=== PATIENT | female | born 1970 | race Caucasian/White ===

== ENCOUNTER 2018-08-20 10:44 | Outpatient (REF) | payer OTHER, SELFPAY ==
--- NOTE | 2018-08-20 09:00 | PAPFT_PTH ---
PATIENT: Lis Arguelles LOC: [facility] U#:[id number] AGE/SX: 48/F ROOM: RE08/20/[address]: FLORINA Call : 1970 BED: DIS: 08/20/2018 SPEC #: [id number] RECD: 08/20/18 12:55 STATUS: CLARK REQ #: [id number] KARYNA: 08/20/18 09:[address]: Devi Foley DEPT: [facility] Cytology RECD BY: Mariana Johnston ENTERED: 08/20/18 12:55 SP TYPE: PAPFT OTHR DR: Jimmy Guardado Tissues: 1 - CX/ENDOCX FOR PAP SMEARS Procedures: PAP THIN PREP/UVM Screening HPV DNA PROBE Comments: [id number]
[2018-08-21 14:45] LABS: Chlamydia Result Negative; GC Result Negative; Specimen Description CERVIX
== END 2018-08-20 11:04 ==
LOC: LBN 10:44
PROVIDERS: PCP Family Medicine; Visit Provider Nurse Practitioner Family
DX: Z11.3 Encounter for screening for infections with a predominantly sexual mode of transmission (principal); Z12.4 Encounter for screening for malignant neoplasm of cervix; Z11.51 Encounter for screening for human papillomavirus (HPV)
CPT/HCPCS: 87491; 87591; 88142; 87624

== ENCOUNTER 2018-09-06 00:29 | Outpatient (CLI) | payer OTHER, SELFPAY ==
--- NOTE | 2018-09-06 08:30 | DI.MAMMO_ITS ---
SYMPTOM/DIAGNOSIS: SCREENING, Z12.31 MAMMOGRAMS: Mammograms were interpreted according to the usual protocol including computer analysis with CAD system, tomosynthesis and C view imaging. Comparison is with the prior examinations. No suspicious masses or microcalcifications are seen. There is no definite evidence of malignancy. IMPRESSION: Negative mammogram. Routine screening is recommended. Category 1. Breast density C. MQSA ASSESSMENT OF FINDINGS: Negative. Category 1. Patient will receive a letter notifying them of these results. Bi-RADS category C. The breasts are heterogeneously dense, which may obscure small masses.
== END 2018-09-06 00:49 ==
PROVIDERS: PCP Family Medicine; Visit Provider Nurse Practitioner Family
DX: Z12.31 Encounter for screening mammogram for malignant neoplasm of breast (principal)
CPT/HCPCS: 77063; 77067

== ENCOUNTER 2018-11-19 06:39 | Day surgery (SDC) | payer OTHER, SELFPAY ==
[2018-11-19 06:45] VITALS: BP 99/64; PULSE 64; RESP 14; TEMP 37.1; O2SAT 100
[2018-11-19] MEDS: Lidocaine 2% Multi-Dose 50 ML VIAL (07:32)
--- NOTE | 2018-11-19 07:49 | W.PM.DSUDISC ---
Discharge Plan Disposition Patient Disposition: HOME Condition: Good Discharge Details Reason For Visit: TRIGGER LMF Attending Provider: Elroy Robledo Primary Care Provider: Jimmy Guardado Home Meds and New Rx's Prescriptions: Continued multivitamin [Daily Multi-Vitamin] tablet 1 tab PO DAILY RF: 0 Adult 50+ Probiotic 4 billion cell capsule PO RF: 0 Mirena 20 mcg/24 hours (5 yrs) 52 mg intrauterine device 1 device Intrauterine RF: 0 Thrive Supplement RF: 0 ibuprofen 200 MG capsule 200 mg PO PRN PRNRF: 0 naproxen sodium [Aleve] 220 MG capsule 220 mg PO PRN PRNRF: 0 Discharge Instructions Additional Instructions: Keep dressings dry and clean for 48 hours. After 48 hours, remove dressings. May then shower or bathe and brenda incision wet. Leave incision uncovered when it is dry and sealed. Bend and straighten L middle finger 10 times/hour when awake, to prevent swelling and stiffness. Use L hand as much as your discomfort allows. Take ibuprofen or tylenol for pain as needed. Follow up with in 10-14 days. Referrals: Elroy Robledo MD [ [facility] STAFF PHYSICIAN] - (f/u in 10-14 days.) Activity:: Activity as Tolerated Remove Dressings/Wound Care:: 48 hours Shower/Bathe:: 48 hours Diet:: As Tolerated Discharge Orders Discharge Orders: Discharge Order (Routine); Ordered 11/19/18 Ordered By: Elroy Robledo DS: Diagnosis Discharge Diagnosis (1) Trigger finger, left middle finger: Status: Acute
--- NOTE | 2018-11-19 13:16 | ROE_ITS ---
DATE OF PROCEDURE: November 19, 2018 PREOPERATIVE DIAGNOSIS: Trigger left middle finger. POSTOPERATIVE DIAGNOSIS: Same. PROCEDURE: Tendon sheath incision for trigger finger release left middle finger. SURGEON: Elroy Robledo M.D. ANESTHESIA: Local infiltration with 1% Xylocaine solution and 0.5% Marcaine with an epinephrine solu tion. INDICATIONS: This is a 48-year-old white female with painful locking of her left middle finger. She 's had this triggering of her left middle finger for a couple of years, but it's only within the last four months that she started having pain with it. Tendon sheath incision was recommended to allevia te her symptoms and alleviate her pain. The risks and complications of the procedure were explained to the patient in detail preoperatively. PROCEDURE: The patient was taken to the Operating Room on 11/19/18. She was placed supine on the ope rating table. The left hand, wrist and forearm were prepped and draped free in the usual sterile fas hion. I infiltrated over the proximal bari of the flexor sheath of the left middle finger with 1% Xylocaine solution. I made a transverse incision centered over the proximal bari of the flexor she ath measuring about 2.5 cm in length. The incision was carried down through the subcu. Blunt-tipped Littler scissors were then used to mobilize the soft tissue away from the flexor sheath. Under dire ct vision, the flexor sheath was incised in the midline. When the proximal bari was fully incised, the patient was asked to actively flex and extend her middle finger. She was now able to flex and e xtend her middle finger fully without locking or catching. The wound was irrigated with saline solut ion. The wound margins were infiltrated with 0.5% Marcaine with an epinephrine solution and the skin edges were approximated with two interrupted #4-0 Nylon sutures. The wound was dressed with Xerofor m gauze, sterile gauze 4x4's, and wrapped with a 2-inch Cling bandage. The patient tolerated the pro cedure well and was discharged to the Day Surgery Unit in good condition. The patient was discharged home from the Day Surgery Unit with instructions to keep her dressings adrian an and dry for 48 hours. She is encouraged to flex and extend her middle finger ten times an hour wh ile awake to prevent swelling and decrease pain. She will take ibuprofen or Tylenol for pain, if nee ded. After 48 hours she can remove her dressings, shower and get her incision wet. She can leave th e incision uncovered when it is dry and sealed. She should follow-up with me in 10 to 14 days.
== END 2018-11-19 08:05 | disposition home or self-care (01) ==
PROVIDERS: PCP Family Medicine; Visit Provider Orthopaedic Surgery
PROC: (CPT 26055; principal; 2018-11-19 07:30)
DX: M65.332 Trigger finger, left middle finger (principal)
CPT/HCPCS: 26055

== ENCOUNTER 2020-10-21 02:10 | Outpatient (CLI) | payer OTHER, SELFPAY ==
--- NOTE | 2020-10-21 15:53 | DI.MAMMO_ITS ---
EXAM: MAMMO SCREENING CLINICAL HISTORY: screening,Z12.39. TECHNIQUE: Bilateral full field digital CC and MLO mammographic images were obtained with 3D tomosyn thesis and utilizing computer aided detection (CAD). COMPARISON: Prior mammograms dating back to 2011, the most recent being August 2018. FINDINGS: Fibroglandular tissue is again noted be moderately dense, this decreasing the sensitivity of the mamm ogram for finding hidden underlying lesions. No new significant radiograph findings in the right breast. In the left breast there are 2 findings. For sleep, there is a suggestion of a 5 millimeter x 5 mill imeter asymmetric density seen on the MLO view located approximately 5 cm in from the nipple. Secondly, on the left MLO view there is a group of microcalcifications located approximately 5 cm in from the nipple. 2D spot Mag view recommended. No new architectural distortion or skin thickening-traction IMPRESSION: Dense bilateral fibroglandular tissue. No obvious radiographic evidence of malignancy in the right b reast. Two separate findings in the left breast including a small group of microcalcifications which require spot CC 2D view and there is also an asymmetric density-possible nodule requiring 3D spot compressio n MLO view. Also require left breast ultrasound. BI-RADS Category 0 - Assessment Incomplete: Need additional imaging evaluation Breast Density - Category C - Heterogeneously dense Breast density Category C or D implies that the patient has dense breast tissue. Dense breast tissue can make it harder to find cancer on a mammogram. Dense breast tissue is also associated with an incr eased risk of breast cancer. This information about the result of the mammogram report was provided to the patient to raise their awareness. Use this report when you speak with the patient about their risks for breast cancer, which includes their family history. At that time, you may recommend additional screening tests (Ultrasoun d or MRI) as these tests may add significant information. A negative radiographic report should not delay biopsy if a dominant or clinically suspicious mass is present. Up to ten percent of cancers are not identified on mammography. A negative report may reinforce clinical impression. Adenosis and dense breasts may obscure an underlying neoplasm. False positive reports average 6 to 10%. Patient will receive a letter notifying them of these results.
== END 2020-10-21 02:30 ==
PROVIDERS: PCP Family Medicine; Visit Provider Nurse Practitioner Family
DX: Z12.31 Encounter for screening mammogram for malignant neoplasm of breast (principal); R92.8 Other abnormal and inconclusive findings on diagnostic imaging of breast
CPT/HCPCS: 77063; 77067

== ENCOUNTER 2020-11-02 01:27 | Outpatient (CLI) | payer OTHER, SELFPAY ==
--- NOTE | 2020-11-02 | DI.US_ITS ---
Exam(s) MG MAMMO SCREEN CALL BACK UNI US BREAST LT LIMITED EXAM: MG MAMMO SCREEN CALL BACK UNI and U/S breast LT limited CLINICAL HISTORY: F/U MAMMO,ASYMMETRIC DENSITY, ? NODULE, MICROCALCIFICATIONS LT BREAST. TECHNIQUE: Craniocaudal and mediolateral oblique Full Field Digital Mammography views of the left br east with Computer Aided Diagnosis followed by Tomosynthesis and left breast ultrasound. COMPARISON: Comparison with prior examinations. FINDINGS: Mammography/Tomosynthesis: Masses/Architectural Distortion: None seen. Microcalcifictions: No suspicious pleomorphic-type are seen. There are 3 punctate nonspecific calcifi cations seen in the medial left breast. No associated architectural distortion or mass is seen. Skin Thickening/Nipple Retraction: None. Left breast US: Echotexture: Normal appearance of the glandular tissue. Shadowing: No suspicious foci. Cyst: None. Solid lesions: None seen. Ductal dilation: None. IMPRESSION: 1. No evidence of malignancy is noted. 2. A six-month follow-up left mammogram is requested for re-evaluation. 3. The findings were discussed with the patient on the date of the examination. BI-RADS Category 3 - 6 month - Probably Benign Finding: Recommend follow-up imaging in 6 months Breast Density - Category C - Heterogeneously dense Breast density Category C or D implies that the patient has dense breast tissue. Dense breast tissue can make it harder to find cancer on a mammogram. Dense breast tissue is also associated with an incr eased risk of breast cancer. This information about the result of the mammogram report was provided to the patient to raise their awareness. Use this report when you speak with the patient about their risks for breast cancer, which includes their family history. At that time, you may recommend additional screening tests (Ultrasoun d or MRI) as these tests may add significant information. A negative radiographic report should not delay biopsy if a dominant or clinically suspicious mass is present. Up to ten percent of cancers are not identified on mammography. A negative report may reinforce clinical impression. Adenosis and dense breasts may obscure an underlying neoplasm. False positive reports average 6 to 10%. Patient will receive a letter notifying them of these results.
== END 2020-11-02 01:47 ==
PROVIDERS: PCP Family Medicine; Visit Provider Nurse Practitioner Family
DX: Z12.31 Encounter for screening mammogram for malignant neoplasm of breast (principal); R92.8 Other abnormal and inconclusive findings on diagnostic imaging of breast; N60.82 Other benign mammary dysplasias of left breast
CPT/HCPCS: 76642; 77063; 77067

== ENCOUNTER 2021-05-05 00:37 | Outpatient (CLI) | payer OTHER, SELFPAY ==
--- NOTE | 2021-05-05 06:30 | DI.MAMMO_ITS ---
Exam(s) MG MAMMO DIAGNOSTIC UNI EXAM: MG MAMMO DIAGNOSTIC UNI-LEFT CLINICAL HISTORY: 6 month f/u Left breast mammo,F/U ABNL MAMMO, R92.8. TECHNIQUE: Unilateral spot mammographic images were obtained with 3D tomosynthesis technique and uti lizing computer aided detection (CAD). COMPARISON: Prior mammograms dating back to 2011, the most recent being October 2020. Diagnostic stud y of October 2020 was also reviewed. Ultrasound was apparently negative time. FINDINGS: The fibroglandular tissue pattern is again noted be dense. 3D imaging today there is less evidence of a nodule. Few benign microcalcifications are noted. No new architectural distortion or skin thickening-traction IMPRESSION: No radiographic evidence of malignancy Appropriate follow-up is to keep this patient yearly mammogram schedule, this implying the next bilat eral mammogram would be in 6 months. The patient was informed of the findings and follow-up recommendations prior to leaving the [facility] today. BI-RADS Category 2 - Benign Findings Breast Density - Category C - Heterogeneously dense Breast density Category C or D implies that the patient has dense breast tissue. Dense breast tissue can make it harder to find cancer on a mammogram. Dense breast tissue is also associated with an incr eased risk of breast cancer. This information about the result of the mammogram report was provided to the patient to raise their awareness. Use this report when you speak with the patient about their risks for breast cancer, which includes their family history. At that time, you may recommend additional screening tests (Ultrasoun d or MRI) as these tests may add significant information. A negative radiographic report should not delay biopsy if a dominant or clinically suspicious mass is present. Up to ten percent of cancers are not identified on mammography. A negative report may reinforce clinical impression. Adenosis and dense breasts may obscure an underlying neoplasm. False positive reports average 6 to 10%. Patient will receive a letter notifying them of these results.
== END 2021-05-05 00:57 ==
PROVIDERS: PCP Family Medicine; Visit Provider Nurse Practitioner Family
DX: R92.8 Other abnormal and inconclusive findings on diagnostic imaging of breast (principal); R92.0 Mammographic microcalcification found on diagnostic imaging of breast
CPT/HCPCS: 77061; 77065; G0279

== ENCOUNTER 2021-09-08 01:31 | Outpatient (CLI) | payer BC, SELFPAY ==
--- NOTE | 2021-09-08 09:15 | DI.MRI_ITS ---
Exam(s) MR LUMBAR SPINE WO EXAM: MR LUMBAR SPINE WO CLINICAL HISTORY: LUMBAR RADICULOPATHY, M54.16. TECHNIQUE: Multiplanar multisequence MRI was performed. COMPARISON: MR MRI - LUMBAR SPINE WO CONTRAST from 06/24/2010 FINDINGS: MR examination lumbar spine was performed according to the usual protocol. No significant bony signa l abnormality seen. There is mild hypertrophic degenerative change of facet joints throughout the conchis mbar spine. There is loss of disc height at L3-4, L4-5, and L5-S1 with loss of signal also noted con sistent with disc degeneration. Conus medullaris appears intact. No significant findings at T11-12, T12-L1, L1-2, or L2-3. No disc herniation, central canal spinal s tenosis, or neural foraminal stenosis at these levels. At L3-4 there is a moderate disc bulge with possible small annular tear. No gross disc herniation. No central canal spinal stenosis or neural foraminal stenosis. At L4-5 there is disc bulge with a small superimposed central disc herniation. No definite neural im pingement. No central canal spinal stenosis or neural foraminal stenosis. At L5-S1, there is minimal central disc herniation. No evidence of neural impingement. No evidence of neural foraminal stenosis, central canal spinal stenosis. Comparison with prior MRI of 2009 shows little interval change in appearance comparison with the prio r study allowing for differences in technique. 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 Please see above discussion for findings at individual levels. DATA REPOSITORY:
== END 2021-09-08 01:51 ==
PROVIDERS: PCP Family Medicine; Visit Provider Nurse Practitioner
DX: M54.16 Radiculopathy, lumbar region (principal); M51.36 Other intervertebral disc degeneration, lumbar region; M51.37 Other intervertebral disc degeneration, lumbosacral region
CPT/HCPCS: 72148

== ENCOUNTER 2022-01-05 09:46 | Outpatient (REF) | payer BC, SELFPAY ==
--- NOTE | 2022-01-05 08:30 | PAPFT_PTH ---
PATIENT: Lis Arguelles LOC: [facility] U#:[id number] AGE/SX: 51/F ROOM: RE01/05/[address]: Anna Martinez NP : 1970 BED: DIS: 01/05/2022 SPEC #: [id number] RECD: 01/05/22 09:56 STATUS: CLARK MIGUEL #: [id number] KARYNA: 01/05/22 08:[address]: Anna Martinez NP DEPT: [facility] Cytology RECD BY: Shannon Duffy ENTERED: 01/05/22 09:56 SP TYPE: PAPFT OTHR DR: Jimmy Guardado Tissues: 1 - CX/ENDOCX FOR PAP SMEARS Procedures: PAP THIN PREP/UVM Screening HPV DNA PROBE Comments: [id number]
== END 2022-01-05 09:47 | disposition home or self-care (01) ==
LOC: LBN 09:46
PROVIDERS: PCP Family Medicine; Visit Provider Nurse Practitioner Women's Health
DX: Z12.4 Encounter for screening for malignant neoplasm of cervix (principal); Z11.51 Encounter for screening for human papillomavirus (HPV)
CPT/HCPCS: 88142; 87624

== ENCOUNTER → 2022-05-11 02:27 | Outpatient (CLI) | payer BC, SELFPAY ==
--- NOTE | 2022-05-11 09:15 | DI.MAMMO_ITS ---
Exam(s) MAMMO SCREENING EXAM: MAMMO SCREENING CLINICAL HISTORY: screening TECHNIQUE: Bilateral full field digital CC and MLO mammographic images were obtained with 3D tomosyn thesis and utilizing computer aided detection (CAD). COMPARISON: Available for comparison. FINDINGS: Masses/Architectural Distortion: None seen. Microcalcifications: No suspicious pleomorphic-type are seen. Skin Thickening/Nipple Retraction: None. IMPRESSION: 1. No significant interval change with no specific features of malignancy noted. 2. Unless there is more urgent need, screening mammography is recommended, as per [employer] guidelines. BI-RADS Category 1 - Negative Breast Density - Category C - Heterogeneously dense Breast density category C or D implies that the patient has dense breast tissue. Dense breast tissue is very common and is not abnormal but dense breast tissue can make it harder to find cancer on a ma mmogram. Also, dense breast tissue may increase their breast cancer risk. This information about the result of the mammogram report was provided to the patient to raise their awareness. Use this report when you speak with the patient about their risks for breast cancer, which includes their family hist ory. At that time, you may recommend for more screening tests (Ultrasound or MRI) as they might be us eful based on their risk. A negative radiographic report should not delay biopsy if a dominant or clinically suspicious mass is present. Up to ten percent of cancers are not identified on mammography. A negative report may reinforce clinical impression. Adenosis and dense breasts may obscure an underlying neoplasm. False positive reports average 6 to 10%. Patient will receive a letter notifying them of these results.
== END ==
PROVIDERS: PCP Family Medicine; Visit Provider Nurse Practitioner Women's Health
DX: Z12.31 Encounter for screening mammogram for malignant neoplasm of breast (principal); R92.2 Inconclusive mammogram
CPT/HCPCS: 77063; 77067

== ENCOUNTER 2022-06-30 07:14 | Day surgery (SDC) | payer BC, SELFPAY ==
--- NOTE | 2022-06-29 17:55 | W.ANESPRE ---
General Info Date of Service Date Performed: 06/30/22 Height: 5 ft 7 in Weight: 54 kg Body Mass Index (BMI): 18.6 Surgical Procedure: Operation Date: 06/30/22 08:50 Proposed Procedure Side Surgeon renny Ceballos MD Meds Allergies and Home Medications Allergies Allergy/AdvReac Type Severity Reaction Status Date / Time No Known Drug Allergies Allergy Verified 06/30/22 07:42 Home Medication Medication Instructions Recorded ibuprofen 200 mg capsule 200 mg PO PRN PRN 06/15/16 naproxen sodium 220 mg capsule 220 mg PO PRN PRN 06/15/16 (Aleve) Thrive Supplement 08/14/17 levonorgestrel 20 mcg/24 hours (8 1 device intrauterine 09/06/18 yrs) 52 mg intrauterine device (Mirena) Current Visit Medications: Current Medications Generic Name Dose Route Start Last Admin Trade Name Freq PRN Reason Stop Dose Admin Ringer's Solution 1,000 mls @ 80 mls/hr 06/30/22 06:00 IV 07/29/22 23:59 INFUSION DOROTHY IV Miscellaneous Supplies 1 each 06/30/22 06:00 Iv Access IV 07/29/22 23:59 DIRECTED DOROTHY Ondansetron HCl 4 mg 06/30/22 06:00 Ondansetron 4 Mg/2 Ml Vial IVP 06/30/22 16:00 PREOP DOROTHY Sodium Chloride 0 ml 06/30/22 06:00 Normal Saline Flush 10 Ml Syr IV 07/29/22 23:59 PRN PRN Sodium Chloride 0 ml 06/30/22 06:00 Normal Saline 10 Ml Vial IJ 07/29/22 23:59 DIRECTED PRN Sterile Water 0 ml 06/30/22 06:00 Water,Injection,Sterile 10 Ml Vial IJ 07/29/22 23:59 DIRECTED PRN PFSH Active Problems Active Problems: Problem Status Onset Code Trigger finger, left middle finger M65.332 IUD surveillance 05/25/15 Z30.431 Medical History Medical History Post-operative nausea and vomiting Surgical History Surgical History Ligation of fallopian tube Oophrectomy, Left (~2009) and cystectomy Tobacco Smoking/Tobacco Use Status: Never Alcohol Alcohol Intake: never Substance Use Substance use: Never Substance use type: does not use Prental History History 2 Para 2 Hx # Term Pregnancies Multiple births Hx # Pregnancies Ectopic pregnancies AB induced Hx Number of Living Children AB spontaneous Vital Signs and Lab Results Vital Signs Most Recent Vital Signs in EMR: Temp Pulse Resp BP Pulse Ox 36.2 C L 78 16 108/75 100 06/30/22 07:25 06/30/22 07:25 06/30/22 07:25 06/30/22 07:25 06/30/22 07:25 Lab Results Blood Type / Crossmatch: No Data to Display Complete Blood Count: No Data to Display Complete Metabolic Panel: No Data to Display Liver Function Panel: No Data to Display Coagulation Panel: No Data to Display Cardiac Panel: No Data to Display Arterial Blood Gas: No Data to Display Venous Blood Gas: No Data to Display Pancreas Panel: No Data to Display Thyroid Panel: No Data to Display Infectious Disease: No Data to Display Blood Cultures: No Data to Display Toxicology Panel: No Data to Display Panel: No Data to Display Anesthesia Assessment and Plan Anesthesia History Personal History: No History of Anesthesia Complications Family History: No Family History of Anesthesia Complications Exercise Tolerance Exercise Tolerance: Metabolic Equivalents>4 Cardiac & Pulmonary Exam Cardiac Exam: Normal S1/S2 Heart Sounds Pulmonary Exam: Clear Bilateral Breath Sounds Implantable Cardiac Device Does patient have a Pacemaker or an ICD?: No Airway Exam Known Difficult Airway: No Mallampati Class: 1 Mouth Opening: Normal (> 3cm) Thyromental Distance: Greater than 3 cm Neck Range of Motion: Full ROM Neck Circumference: Normal Teeth Condition: Normal Dentition ASA Classification ASA Score: ASA 2 Emergency Case?: No NPO Status NPO Status: NPO Clears >2 hours, Solids >8 hours Status Status: Not Relevant due to Medical History Anesthesia Plan Resuscitation Status: Full Code Anesthesia Technique: General Anesthesia Airway Planned: Natural Airway Monitors Used: Standard Monitors Preoperative Comments:: 52 yo female for colonoscopy. Sig PMHx: never smoker/EtOH, DJD spine with herniations. Previous Anes: PONV, no records on file.
--- NOTE | 2022-06-29 19:24 | W.PM.DSUDISC ---
Date of service: 06/30/22 Time of Service: 09:19 Discharge Plan Disposition Patient Disposition: Home Condition: Good Discharge Details Reason For Visit: Screening colonoscopy Attending Provider: Wiliam Ceballos Primary Care Provider: Jimmy Guardado Home Meds and New Rx's Prescriptions: Continued Mirena 20 mcg/24 hours (5 yrs) 52 mg intrauterine device 1 device Intrauterine Label Comments: 09/06/2018: LOT [id number]; Exp: 10/2020 Thrive Supplement ibuprofen 200 MG capsule 200 mg PO PRN PRN naproxen sodium [Aleve] 220 MG capsule 220 mg PO PRN PRN Discontinued polyethylene glycol 3350 17 gram/dose powder 238 g PO ONCE Qty: 238 0RF Rx Instructions: take per colonoscopy instructions bisacodyl [Dulcolax (bisacodyl)] 5 mg tablet,delayed release (DR/EC) 5 mg PO ONCE Qty: 4 0RF Rx Instructions: take per colonoscopy instructions Discharge Instructions Instructions: Colorectal Polyps (GEN) Additional Instructions: 1. If tolerated, consume a soft, low fiber diet for 1-2 days. 2[address] Do not drive, drink alcohol, operate machinery, make critical decisions, or do activities that require coordination or balance for 24 hours. 3. Because air was put into your colon during the procedure, expelling air from your rectum (passing gas or farting) is normal. 4. You may not have a bowel movement for 1-3 days because of the colonoscopy prep. This is normal. 5. Go directly to the emergency room if you notice any of the following: Develop chills (warm to touch), or if you have a thermometer and your temperature is above 101 Difficulty breathing or difficultly swallowing Persistent vomiting Severe abdominal pain, other than gas cramps Severe chest pain Black, tarry stools Any bleeding ? exceeding one tablespoon 6. Call your physician if the site where your intravenous was started becomes red, swollen, painful, and warm to touch. 7. Your physician has reviewed your pre-procedure medications. Please continue to take those medications as previously ordered. You will be given specific information/education regarding any changes to your medications before leaving. Activity:: Activity as Tolerated Diet:: As Tolerated Discharge Orders Discharge Orders: Discharge Order (Routine); Ordered 06/29/22 Ordered By: Wiliam Ceballos DS: Diagnosis Discharge Diagnosis (1) Colon polyp: Status: Acute Asessment and Plan: I will contact you with results of the pathology report once the biopsy is available.
--- NOTE | 2022-06-29 19:26 | W.COLOREPORT ---
Date of service: 06/30/22 Time of Service: : Colonoscopy Report Date of procedure: 06/30/22 Pre-op diagnosis general: Screening colonoscopy Post-op diagnosis procedure note: other (Colon polyp) Procedure: Colonoscopy with polypectomy Surgeon: Wiliam Ceballos Anesthesia Type: General:No Airway Estimated blood loss (mL): 5 Pathology: other (Polyp at 35 cm) Complications: None Disposition: same day Indications: Lis is a 52-year-old woman undergoing screening colonoscopy Prep: Miralax/Dulcolax Procedure Start Time: : Procedure End Time: : Retraction Time: 11 Findings: Colon polyp at 35 cm Procedure Description: After the induction of monitored anesthetic care, and with the patient in left lateral decubitus position, I began by performing an external anorectal exam.? Perineum and skin were normal, as was the anal verge.? There was evidence of external hemorrhoids.? Next, I performed a digital rectal exam.? I did appreciate any abnormal findings.? Next, I advanced a colonoscope into the rectal vault.? I performed retroflexion.? There were some old fibrosed internal hemorrhoids.? Using insufflation, I then advanced the colonoscope beyond the rectal folds and into the sigmoid colon before advancing towards the cecum.? The quality of the prep was excellent.? The scope was noted to be in the cecum by identification of the ileocecal valve and appendiceal orifice.? I then began withdrawing the colonoscope using repeated irrigation as necessary for full evaluation of the colonic mucosa. Around 35 cm from the anal verge I identified a 0.25 cm polyp. ?It appeared sessile in character. ?I was able to remove this with a cold forcep polypectomy. ?I examined the site, and there was minimal bleeding. ?Once this was completed, I continued to withdraw the scope and examine the remainder of the colonic mucosa.?Once the scope was withdrawn to the level of the rectum, great care was taken to examine portions of the rectal folds.? Finally, the scope was withdrawn and the patient was brought to the same-day surgery recovery unit as the anesthetic wore off. ?The findings and instructions were shared with the patient prior to discharge.
[2022-06-30 07:25] VITALS: BP 108/75; PULSE 78; RESP 16; TEMP 36.2; O2SAT 100
[2022-06-30] MEDS: Lactated Ringers 1,000 ML 80 ML IV (08:04)
[2022-06-30 08:40] VITALS: BMI 18.6
--- NOTE | 2022-06-30 09:07 | BOWEL_PTH ---
PATIENT: Lis Arguelles LOC: [facility] U#:[id number] AGE/SX: 52/F ROOM: RE06/30/[address]: Wiliam Ceballos MD : 1970 BED: DIS: 06/30/2022 SPEC #: [id number] RECD: 06/30/22 11:47 STATUS: CLARK REQ #: [id number] KARYNA: 06/30/22 09:[address]: Wiliam Ceballos DEPT: Surgical Specimen RECD BY: Shannon Duffy ENTERED: 06/30/22 11:48 SP TYPE: Bowel OTHR DR: Jimmy Guardado Tissues: 1 - BIOPSY BOWEL Procedures: GROSS AND MICRO LEVEL 4 Comments: [id number]
[2022-06-30 09:12] VITALS: BP 109/70; PULSE 70; RESP 16; TEMP 36.3; O2SAT 100
--- NOTE | 2022-06-30 09:26 | W.ANESPOSTOP ---
Postoperative Evaluation Date, Time and Location Date Performed: 06/30/22 Time Performed: 09: Patient Location: Day Surgery Unit Vital Signs Most Recent Imported Vital Signs: Most Recent Vital Signs Temp Pulse Resp BP Pulse Ox 36.3 C L 70 16 109/70 100 06/30/22 09:12 06/30/22 09:12 06/30/22 09:12 06/30/22 09:12 06/30/22 09:12 Pain Score Most Recent Pain Score: Most Recent Pain Score Pain Level 0 06/30/22 09:12 Assessment Mental Status: Awake (Alert & Oriented to Patient Baseline) Airway and Respiratory Function: Patent airway with normal (patient baseline) respiratory exam Cardiovascular Function: Hemodynamically Stable Hydration Status: Adequately Hydrated Nausea & Vomiting: No Nausea or Vomiting Pain: Pt. Denies Any Pain Peripheral Nerve Block: Patient did not receive a nerve block
[2022-06-30 09:34] VITALS: BP 114/71; PULSE 64; RESP 16; TEMP 36.4; O2SAT 100
== END 2022-06-30 09:50 | disposition home or self-care (01) ==
LOC: SUR 07:14
PROVIDERS: PCP Family Medicine; Visit Provider Surgery
PROC: 0DJD8ZZ Inspection of Lower Intestinal Tract, Via Natural or Artificial Opening Endoscopic (ICD-10-PCS; CPT 45378; principal; 2022-06-30 08:45)
DX: Z12.11 Encounter for screening for malignant neoplasm of colon (principal); K63.5 Polyp of colon; K64.8 Other hemorrhoids
CPT/HCPCS: 45380; 88305

== ENCOUNTER 2023-05-12 09:41 | Outpatient (CLI) | payer BC, SELFPAY ==
--- NOTE | 2023-05-12 09:30 | RT.EKG_ITS ---
APPROVED REPORT Exam: Resting ECG Reason for Exam: Cold symptoms Patient Location: O HR:73 bpm ECG Measurements Heart Rate 73 AXIS AZ 145 P 71 QRSd 93 QRS 64 QT 407 T 37 QTc 449 Conclusion Sinus rhythm...normal P axis, V-rate 50- 99 Normal Electrocardiogram
== END 2023-05-12 09:42 | disposition home or self-care (01) ==
LOC: DI.CM 09:41
PROVIDERS: PCP Family Medicine; Visit Provider Nurse Practitioner Family
DX: R07.89 Other chest pain (principal)
CPT/HCPCS: 93010

== ENCOUNTER 2023-05-12 21:34 | Outpatient (REF) | payer BC, SELFPAY | END 2023-05-12 21:35 | disposition home or self-care (01) | LOC: LBN 21:34 | PROVIDERS: PCP Family Medicine; Visit Provider Nurse Practitioner Family | DX: J02.9 Acute pharyngitis, unspecified (principal) | CPT/HCPCS: 87070 ==

== ENCOUNTER → 2023-05-17 01:50 | Outpatient (CLI) | payer BC, SELFPAY ==
--- NOTE | 2023-05-17 08:45 | DI.MAMMO_ITS ---
Exam(s) MAMMO SCREENING EXAM: MAMMO SCREENING CLINICAL HISTORY: screening. TECHNIQUE: Bilateral full field digital CC and MLO mammographic images were obtained with 3D tomosyn thesis and utilizing computer aided detection (CAD). COMPARISON: Prior mammograms were reviewed. FINDINGS: Fibroglandular tissue is again noted be dense, this somewhat decreasing the sensitivity mammogram for finding hidden underlying lesions. There are no CAD designations. There are no new spiculated masses nor malignant appearing microcalcification groups. There is no significant architectural distortion nor skin thickening-retraction. IMPRESSION: No radiographic evidence of malignancy. BI-RADS Category 1 - Negative Breast Density - Category C - Heterogeneously dense Breast density Category C or D implies that the patient has dense breast tissue. Dense breast tissue can make it harder to find cancer on a mammogram. Dense breast tissue is also associated with an incr eased risk of breast cancer. This information about the result of the mammogram report was provided to the patient to raise their awareness. Use this report when you speak with the patient about their risks for breast cancer, which includes their family history. At that time, you may recommend additional screening tests (Ultrasoun d or MRI) as these tests may add significant information. A negative radiographic report should not delay biopsy if a dominant or clinically suspicious mass is present. Up to ten percent of cancers are not identified on mammography. A negative report may reinforce clinical impression. Adenosis and dense breasts may obscure an underlying neoplasm. False positive reports average 6 to 10%. Patient will receive a letter notifying them of these results.
== END ==
PROVIDERS: PCP Family Medicine; Visit Provider Nurse Practitioner Women's Health
DX: Z12.31 Encounter for screening mammogram for malignant neoplasm of breast (principal)
CPT/HCPCS: 77063; 77067

== ENCOUNTER 2024-03-13 10:59 | Outpatient (CLI) | payer BC, SELFPAY ==
[2024-03-13 11:39] LABS: TSH (W/Ref FT4) 1.37 uIU/mL (0.36-3.74)
== END 2024-03-13 11:00 | disposition home or self-care (01) ==
LOC: LBO 11:00
PROVIDERS: PCP Family Medicine; Visit Provider Nurse Practitioner Women's Health
DX: R68.89 Other general symptoms and signs (principal)
CPT/HCPCS: 36415; 84443

== ENCOUNTER 2024-03-27 02:33 | Outpatient (CLI) | payer BC, SELFPAY ==
[2024-03-27 10:44] LABS: Anion Gap 6.5 mmol/L (3-11); BUN 27 mg/dL (7-18); CO2 30.5 mmol/L (21.0-32.0); CREATININE 0.8 mg/dL (0.55-1.02); Calcium 9.2 mg/dL (8.5-10.1); Calculated LDL 96 mg/dL (<100); Chloride 104 mmol/L (98-107); Cholesterol 165 mg/dL (<200); Glucose 86 mg/dL (74-106); HDL Cholesterol 60 mg/dL (40-60); Potassium 4.3 mmol/L (3.5-5.1); Sodium 141 mmol/L (136-145); Triglyceride 47 mg/dL (<150)
== END 2024-03-27 02:34 | disposition home or self-care (01) ==
PROVIDERS: PCP Family Medicine; Visit Provider Student in an Organized Health Care Education/Training Program
DX: Z13.220 Encounter for screening for lipoid disorders (principal); Z13.1 Encounter for screening for diabetes mellitus
CPT/HCPCS: 36415; 80048; 80061

== ENCOUNTER 2024-09-12 01:20 | Outpatient (CLI) | payer BC, SELFPAY ==
--- NOTE | 2024-09-12 08:15 | DI.MAMMO_ITS ---
Exam(s) MAMMO SCREENING EXAM: MAMMO SCREENING CLINICAL HISTORY: screening,z12.39 TECHNIQUE: Bilateral full field digital CC and MLO mammographic images were obtained with 3D tomosyn thesis and utilizing computer aided detection (CAD). COMPARISON: Available for comparison. FINDINGS: Masses/Architectural Distortion: None seen. Microcalcifications: No suspicious pleomorphic-type are seen. Skin Thickening/Nipple Retraction: None. IMPRESSION: 1. No significant interval change with no specific features of malignancy noted. 2. Unless there is more urgent need, screening mammography is recommended, as per [place] [employer] guidelines. BI-RADS Category 1 - Negative Breast Density - Category C - Heterogeneously dense Breast density category C or D implies that the patient has dense breast tissue. Dense breast tissue is very common and is not abnormal but dense breast tissue can make it harder to find cancer on a ma mmogram. Also, dense breast tissue may increase their breast cancer risk. This information about the result of the mammogram report was provided to the patient to raise their awareness. Use this report when you speak with the patient about their risks for breast cancer, which includes their family hist ory. At that time, you may recommend for more screening tests (Ultrasound or MRI) as they might be us eful based on their risk. A negative radiographic report should not delay biopsy if a dominant or clinically suspicious mass is present. Up to ten percent of cancers are not identified on mammography. A negative report may reinforce clinical impression. Adenosis and dense breasts may obscure an underlying neoplasm. False positive reports average 6 to 10%. Patient will receive a letter notifying them of these results.
== END 2024-09-12 01:40 ==
LOC: DI 01:20
PROVIDERS: PCP Family Medicine; Visit Provider Nurse Practitioner Women's Health
DX: Z12.31 Encounter for screening mammogram for malignant neoplasm of breast (principal); R92.333 Mammographic heterogeneous density, bilateral breasts
CPT/HCPCS: 77063; 77067